=== PATIENT | female | born 1975 ===

== ENCOUNTER 2017-04-22 15:57 | Emergency (ER) | payer OTHER ==
[2017-04-22 16:02] VITALS: BP 147/85; PULSE 85; RESP 16; TEMP 98.3; O2SAT 100
[2017-04-22] MEDS ORDERED: DiphenhydrAMINE 50 mg/ml Inj IVP STA (16:27)
[2017-04-22] MEDS ORDERED: Sodium Chloride 0.9% 1,000 ML IV STA (16:27)
--- NOTE | 2017-04-22 16:55 | ED PDOC ---
HPI: Allergic Reaction Time Seen by Provider: 04/22/17 16:18 Chief Complaint (Nursing): Allergic Reaction Chief Complaint (Provider): Allergic Reaction History Per: Patient History/Exam Limitations: no limitations Onset/Duration Of Symptoms: Days (x1 week) Current Symptoms Are (Timing): Still Present Possible Cause: Food Associated Symptoms: Skin Rash, Itching, Redness Home/EMS Treatment: Benadryl Additional Complaint(s): Emeli Garcia, a 41 year old female, presents to the ED with an itchy rash all over her body x7 days. The patient states that she was taking an over the counter yeast infection medication for 7 days. She also reports that she thinks that she had some shrimp and that may be what caused the rash. Denies nausea, vomiting, difficulty breathing and swelling to hands, lips and tongue. Patient does not some soreness to the throat. Past Medical History Reviewed: Historical Data, Nursing Documentation, Vital Signs Vital Signs: Last Vital Signs Temp 98.3 F 04/22/17 15:59 Pulse 85 04/22/17 15:59 Resp 16 04/22/17 15:59 BP 147/85 04/22/17 15:59 Pulse Ox 100 04/22/17 15:59 - Medical History PMH: No Chronic Diseases - Surgical History Surgical History: No Surg Hx - Family History Family History: States: Unknown Family Hx - Social History Current smoker - smoking cessation education provided: No Alcohol: None Drugs: Denies - Home Medications Home Medications: Ambulatory Orders Medication Instructions Recorded Calamine/Pramoxine [Caladryl] 180 ml TP DAILY #1 bottle 04/22/17 Famotidine [Pepcid] 20 mg PO BID #16 tab 04/22/17 predniSONE [predniSONE Tab] 20 mg PO BID #8 tab 04/22/17 - Allergies Allergies/Adverse Reactions: Allergies Allergy/AdvReac Type Severity Reaction Status Date / Time No Known Allergies Allergy Verified 04/22/17 16:02 Review of Systems Constitutional: Positive for: Other (diffuse urticarial rash about body) Physical Exam - Reviewed Nursing Documentation Reviewed: Yes Vital Signs Reviewed: Yes - Physical Exam Appears: Positive for: Non-toxic, No Acute Distress Head Exam: Positive for: ATRAUMATIC, NORMAL INSPECTION, NORMOCEPHALIC Skin: Positive for: Normal Color, Warm, Dry, Rash (diffuse erythematous papular urticarial rash to face) Eye Exam: Positive for: Normal appearance (No swelling to eyes), EOMI, PERRL ENT: Positive for: Normal ENT Inspection (No uvula, tongue, lip or tonsillar swelling) Neck: Positive for: Normal, Painless ROM, Supple Cardiovascular/Chest: Positive for: Regular Rate, Rhythm, Chest Non Tender. Negative for: Murmur, Tachycardia Respiratory: Positive for: Normal Breath Sounds. Negative for: Rales, Rhonchi, Wheezing, Respiratory Distress Gastrointestinal/Abdominal: Positive for: Normal Exam, Bowel Sounds, Soft. Negative for: Tenderness, Mass, Guarding, Rebound Back: Positive for: Normal Inspection. Negative for: L CVA Tenderness, R CVA Tenderness Extremity: Positive for: Normal ROM (Papular lesions to both upper and lower extremities. ). 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 Scribe Attestation All medical record entries made by the Scribe were at my direction and personally dictated by me. I have reviewed the chart and agree that the record accurately reflects my personal performance of the history, physical exam, medical decision making, and the department course for this patient. I have also personally directed, reviewed, and agree with the discharge instructions and disposition. Re-evaluation Time: 18:34 Condition: Improved (mild improvement noted. ) Disposition - Clinical Impression Clinical Impression: Allergic reaction - Patient ED Disposition Is Patient to be Admitted: No Counseled Patient/Family Regarding: Studies Performed, Diagnosis, Need For Followup, Rx Given - Disposition Referrals: [facility] [Outside] Disposition: Routine/Home Disposition Time: 18:35 Condition: STABLE Prescriptions: Calamine/Pramoxine [Caladryl] 180 ml TP DAILY #1 bottle Famotidine [Pepcid] 20 mg PO BID #16 tab predniSONE [predniSONE Tab] 20 mg PO BID #8 tab Instructions: Urticaria (GEN) Forms: [employer] ([place]), [facility] ED School/Work Excuse
[2017-04-22] MEDS ORDERED: DiphenhydrAMINE 50 mg/ml Inj ONE (17:10)
== END 2017-04-22 18:50 | disposition home or self-care (01) ==
LOC: H.ER 15:57
DX: L50.9 Urticaria, unspecified (principal)
CPT/HCPCS: 81025; 96361; 96374; 96375; 99284; J1200; J2930; J7040